=== PATIENT | female | born 1985 | race Caucasian/White ===

== ENCOUNTER 2017-09-16 15:47 | Emergency (ER) | payer MEDICAID ==
[2017-09-16 18:57] LABS: URINE BLOOD (Dip) POC Trace-lysed (NEGATIVE); URINE GLUCOSE (Dip) POC Negative (NEGATIVE); URINE KETONES (Dip) POC Negative (NEGATIVE); URINE LEUKOCYTE EST (Dip) POC Trace (NEGATIVE); URINE NITRITE (Dip) POC Negative (NEGATIVE); URINE TOTAL PROTEIN POC Negative (NEGATIVE)
== END 2017-09-16 19:41 | disposition home or self-care (01) ==
LOC: FTE 15:47
DX: F41.9 Anxiety disorder, unspecified (principal)
CPT/HCPCS: 81003; 81025; 99283

== ENCOUNTER 2018-02-20 13:07 | Emergency (ER) | payer MEDICAID ==
[2018-02-20] MEDS: KETOROLAC 60 MG INJ IM (15:46)
== END 2018-02-20 15:50 | disposition home or self-care (01) ==
LOC: FTE 13:07
DX: S16.1XXA Strain of muscle, fascia and tendon at neck level, initial encounter (principal); X58.XXXA Exposure to other specified factors, initial encounter; Y92.9 Unspecified place or not applicable
CPT/HCPCS: 81025; 96372; 99284-25

== ENCOUNTER 2018-11-24 10:05 | Emergency (ER) | payer MEDICAID ==
[2018-11-24] MEDS: ONDANSETRON (ODT) 4 MG TAB ODT (10:36)
[2018-11-24] MEDS: ACETAMINOPHEN 325 MG TAB PO (10:36)
[2018-11-24 10:40] LABS: URINE PH (Dip) POC 5.5 (5.0-8.5)
[2018-11-24 10:40] LABS: URINE BLOOD (Dip) POC 3+ (NEGATIVE); URINE GLUCOSE (Dip) POC Negative (NEGATIVE); URINE KETONES (Dip) POC Negative (NEGATIVE); URINE LEUKOCYTE EST (Dip) POC Trace (NEGATIVE); URINE NITRITE (Dip) POC Negative (NEGATIVE); URINE TOTAL PROTEIN POC Negative (NEGATIVE)
== END 2018-11-24 11:13 | disposition home or self-care (01) ==
LOC: FTE 10:05
DX: T78.1XXA Other adverse food reactions, not elsewhere classified, initial encounter (principal)
CPT/HCPCS: 81003; 81025; 99283